=== PATIENT | male | born 1960 | race Caucasian/White ===

== ENCOUNTER 2018-12-22 02:11 | Emergency (ER) | payer MEDICARE, OTHER ==
[~2018-12-22] VITALS: Ht 175.3 cm; Wt 90.7 kg
[~2018-12-22 02:11] MED LIST: AMOXICILLIN 50500 MG PO; ASPIR 8181 MG PO; AZITHROMYCIN 2250 MG PO; DIOVAN 80 MG TA80 M1 PO; LEVOTHYROXIN0.025 MG PO; LOPRESSOR25 PO; METHADONE HCL5 MG PO; OMEPRAZOLE40 MG PO; PREDNISONE 10 M10 MG PO; PROAIR HFA8.5 GM INH; SPIRIVA INH; SYMBICORT160 MCG/4. INH; SYMBICORT80 MCG/4.1 INH
[2018-12-22 03:34] VITALS: BP 122/80
== END 2018-12-22 03:36 | disposition home or self-care (01) ==
LOC: M.ERS 02:11
DX: K06.8 Other specified disorders of gingiva and edentulous alveolar ridge (principal); J44.9 Chronic obstructive pulmonary disease, unspecified; K21.9 Gastro-esophageal reflux disease without esophagitis; I10 Essential (primary) hypertension; F17.210 Nicotine dependence, cigarettes, uncomplicated; Z88.8 Allergy status to other drugs, medicaments and biological substances

== ENCOUNTER 2019-03-16 12:05 | Emergency (ER) | payer MEDICARE ==
[~2019-03-16] VITALS: Ht 175.3 cm; Wt 90.7 kg
[2019-03-16] MEDS ORDERED: LIPITOR 20 MG T20 M1 PO (12:15)
[2019-03-16] MEDS ORDERED: LOPRESSOR25 PO (12:15)
[2019-03-16] MEDS ORDERED: TRAMADOL 50 MG50 MG PO (13:20)
[2019-03-16] MEDS ORDERED: FLEXERIL PO (13:20)
[2019-03-16 13:36] VITALS: BP 123/76
== END 2019-03-16 13:37 | disposition home or self-care (01) ==
LOC: M.ERS 12:05
DX: S49.81XA Other specified injuries of right shoulder and upper arm, initial encounter (principal); J44.9 Chronic obstructive pulmonary disease, unspecified; I10 Essential (primary) hypertension; K21.9 Gastro-esophageal reflux disease without esophagitis; Z88.8 Allergy status to other drugs, medicaments and biological substances; F17.210 Nicotine dependence, cigarettes, uncomplicated; W18.39XA Other fall on same level, initial encounter; Y93.89 Activity, other specified; Y92.89 Other specified places as the place of occurrence of the external cause; Y99.8 Other external cause status

== ENCOUNTER 2020-10-18 17:24 | Emergency (ER) | payer OTHER ==
[~2020-10-18] VITALS: Ht 172.7 cm; Wt 93.0 kg
[~2020-10-18 17:24] MED LIST changes: +FLEXERIL PO; +LIPITOR 20 MG T20 M1 PO; +TRAMADOL 50 MG50 MG PO
[2020-10-18 18:05] LABS: ABSOLUTE BASOPHILS 0.3 thou/uL (0.0-0.2); ABSOLUTE EOSINOPHILS 0.5 thou/uL (0.0-0.7); ABSOLUTE MONOCYTES 0.8 thou/uL (0.0-1.2); ABSOLUTE NEUTROPHILS 5.7 thou/uL (1.6-8.1); BASOPHILS 2.4 %; EOSINOPHILS 5.1 %; HEMATOCRIT 37.4 % (42.0-52.0); HEMOGLOBIN 12.3 gm/dL (14.0-18.0); LYMPHOCYTES 29.5 %; MCH 29.4 pg (26.0-34.0); MCHC 32.9 g/dL (28.0-37.0); MCV 89.2 fL (80.0-100.0); MONOCYTES 7.3 %; MPV 6.6 fl. (7.2-11.1); NUCLEATED RBCS 0 /100WBC; PLATELET COUNT* 337 thou/uL (150-400); POLYS 55.7 %; RBC 4.19 mil/uL (4.50-6.00); RDW-CV 15.5 % (10.5-14.5); WBC 10.3 thou/uL (4.0-11.0)
[2020-10-18 18:08] LABS: CALCIUM 8.9 mg/dL (8.5-10.1); CREATININE 1.7 mg/dL (0.6-1.3); POTASSIUM 4.1 mmol/L (3.5-5.1)
[2020-10-18 18:15] LABS: PROTIME 10.5 Seconds (9.20-11.50)
[2020-10-18 18:19] LABS: ALBUMIN 4.3 g/dL (3.4-5.0); TOTAL BILIRUBIN 0.7 mg/dL (<0.1-1.0); TOTAL PROTEIN 7.9 g/dL (6.4-8.2)
[2020-10-18] MEDS ORDERED: ZPAK PO (20:02)
[2020-10-18] MEDS ORDERED: MEDROLDOSEPACK PO (20:02)
[2020-10-18] MEDS ORDERED: VENTOLIN HFA 1818 GM INH (20:02)
[2020-10-18 20:11] VITALS: BP 151/65
--- NOTE | 2020-10-19 12:15 | EKG ---
[place] [address] ELECTROCARDIOGRAM REPORT Name: BRAD DAVALOS Room: [facility]#: [id number] Admission: 10/18/20 Attend Phys: Discharge: 10/18/20 Date of : 60 Date of Service: 10/18/201740 Report #: [id number] THIS REPORT FOR: //name// [facility] ED Test Date: 2020-10-18 Test Time: 17:41:56 Pat Name: BRAD DAVALOS Department: Room: Gender: [facility] Psych[facility]rist: [place] : [id number] Requested By: Dary Lucia Order Number: [id number] MD: Joseph Villegas Measurements Intervals [place] Rate: 69 P: 26 MN: 243 QRS: -59 QRSD: 141 T: 107 QT: 440 QTc: 472 Interpretive Statements Sinus rhythm Prolonged MN interval Left bundle branch block Baseline wander in lead(s) II,aVR Compared to ECG 07/05/2016 13:18:19 Left bundle-branch block now present Left ventricular hypertrophy no longer present Early repolarization no longer present Electronically Signed On 10-19-2020 12:14:47 CDT by Joseph Villegas [email or web address] <ELECTRONICALLY SIGNED> By: Joseph Villegas MD, FAC 10/19/20 1214 [id number] Joseph Villegas MD, [facility] /EPI
== END 2020-10-18 20:11 | disposition home or self-care (01) ==
LOC: M.ERS 17:24
PROVIDERS: Nurse Practitioner Family
DX: J44.1 Chronic obstructive pulmonary disease with (acute) exacerbation (principal); Z20.822 Contact with and (suspected) exposure to COVID-19; I10 Essential (primary) hypertension; K21.9 Gastro-esophageal reflux disease without esophagitis; F17.210 Nicotine dependence, cigarettes, uncomplicated; Z88.8 Allergy status to other drugs, medicaments and biological substances